=== PATIENT | female | born 1985 | race Caucasian/White ===

== ENCOUNTER 2020-02-24 00:46 | Inpatient (IN) | payer OTHER, SELFPAY ==
[2020-02-24] VITALS (79 sets, daily range): BP systolic 95–143; BP diastolic 48–84; PULSE 80–116; RESP 16; TEMP 36.7–36.9; O2SAT 96–100; BMI 46.8
--- NOTE | 2020-02-24 00:46 | LDADM ---
This patient, Monica Laureano, was admitted to Labor/Delivery/Recovery 106 on 02/24/20 at 00:46. Plans for labor, pain management and were discussed with patient. Patient/family oriented to hospital policies and general routines including ID bracelet, bed and alarms, visiting hours, pain management, procedures, bathroom and other care routines, personal items, smoking policy, room service/diet and guest tray routines, security routines, and visiting hours. Patient/Family are encouraged to report perceived risks to care and to ask questions if they do not understand what they are told or what they should do. See OBIX for further documentation.
[2020-02-24] MEDS: LACTATED RINGERS 1,000 ML 125 ML IV CONT ×2 (01:12→01:34)
[2020-02-24 01:24] LABS: Basophils Percent Auto 0.2 % (0.2-1.2); Eosinophils Absolute Auto 0.1 K/mm3 (0-0.3); Eosinophils Percent Auto 0.6 % (0-4.4); Hematocrit 35.7 % (37.0-47.0); Hemoglobin 11.9 g/dL (12.0-15.0); Immature Granulocyte Absolute 0.02 K/mm3 (0.00-0.031); Immature Granulocyte Percent A 0.2 % (0-0.5); Lymphocytes Absolute Auto 1.77 K/mm3 (0.9-3.2); Mean Corpuscular HGB Conc 33.3 g/dl (32-36); Mean Corpuscular Volume 86.9 fl (80-100); Monocytes Absolute Auto 0.9 K/mm3 (0.1-0.6); Monocytes Percent Auto 10.8 % (2.6-8.5); Neutrophils Absolute Auto 5.7 K/mm3 (1.3-6.7); Neutrophils Percent Auto 67.2 % (45.5-73.1); Platelet Count Result 177 k/mm3 (150-375); Red Blood Count 4.11 M/mm3 (4.2-5.4); Red Cell Distribution Width 12.6 % (11.5-14.5); White Blood Count 8.4 K/mm3 (4.5-10.0)
[2020-02-24 01:58] LABS: Glucose Point of Care 82 (65-105)
[2020-02-24 03:33] LABS: Glucose Point of Care 84 (65-105)
[2020-02-24] MEDS: OXYTOCIN 30 UNITS/NS 500 ML 30 UNITS/500 ML BAG 999 UNITS IV CONT (05:05)
--- NOTE | 2020-02-24 05:20 | P.PCNOB_ITS ---
OB - Delivery Note Procedure Delivery date: 02/24/20 Procedure: events: Gestational Diabetes Induction method: none Delivery monitor: external FHT and external uterine Route of delivery: Laceration description: Perineal - 1st Degree Delivery repair: vicryl (3-0 ) Specimen: Yes (placenta) Estimated blood loss (mL): 150 Anesthesia type: Epidural Disposition: floor [place] Baby Weeks of gestation at delivery: 38 Infant gender: Male presentation: vertex Placenta delivery description: Spontaneous cord vessel description: 3 Vessels score one minute: 8 score five minutes: 9
--- NOTE | 2020-02-24 05:20 | WPDOBADMIT ---
Obstetrics - Admit Note Admission Note: record reviewed. No pertinent additions to the history and/or any subsequent changes in the physical findings that are not consistent with the expected course of the were found. Additions to the history and/or subsequent changes in the physical findings follow. None.Here in labor. Cervix was 7/70/-2 AROM with clear fluid. FHTs reactive
--- NOTE | 2020-02-24 05:22 | PM.OBDSVD ---
DS: Diagnosis Discharge Diagnosis (1) (normal spontaneous vaginal delivery): Code(s): O80 - Encounter for full-term uncomplicated delivery Status: Acute (2) GDM, class A2: Code(s): O24.419 - Gestational diabetes mellitus in , unspecified control Status: Acute (3) 38 weeks gestation of : Code(s): Z3A.38 - 38 weeks gestation of Status: Acute OB - DS: Summary OB Procedures : NST and Ultrasound OB Procedures Intrapartum: Spontaneous Vag Delivery OB Procedures: : None Peripartum Data Delivery Method: Natural Vaginal Laceration description: Perineal - 1st Degree complications: none Status at Discharge Functional status at discharge: independent ambulation Overall status at discharge: patient is progressing back to baseline Time Spent with Patient Time attestation: Total time spent providing and/or coordinating discharge services: DS: Data Data Completed and Pending Labs on day of discharge: Labs from last 24 hours 02/24/20 02/24/20 02/24/20 03:30 01:11 01:08 WBC RBC Hgb Hct MCV MCH MCHC RDW Plt Count MPV Immature Gran % (Auto) Neut % (Auto) Lymph % (Auto) [place] % (Auto) Eos % (Auto) Baso % (Auto) Lymph # (Auto) [place] # (Auto) Eos # (Auto) Baso # (Auto) Abs Immat Gran (auto) Absolute Neuts (auto) Absolute Nucleated RBC Nucleated RBC % POC Capillary Glucose 84 82 RPR Blood Type O Positive Antibody Screen Negative 02/24/20 02/24/20 01:08 01:08 WBC 8.4 RBC 4.11 L Hgb 11.9 L Hct 35.7 L MCV 86.9 MCH 29.0 MCHC 33.3 RDW 12.6 Plt Count 177 MPV 11.0 H Immature Gran % (Auto) 0.2 Neut % (Auto) 67.2 Lymph % (Auto) 21.0 [place] % (Auto) 10.8 H Eos % (Auto) 0.6 Baso % (Auto) 0.2 Lymph # (Auto) 1.77 [place] # (Auto) 0.9 H Eos # (Auto) 0.1 Baso # (Auto) 0.0 Abs Immat Gran (auto) 0.02 Absolute Neuts (auto) 5.7 Absolute Nucleated RBC 0.0 Nucleated RBC % 0.0 POC Capillary Glucose RPR Pending Blood Type Antibody Screen Discharge Plan Discharge Attending physician on discharge: Leidy Henriquez Discharging Clinician: Leidy Henriquez Anticipated Discharge Date/Time: 02/26/20 05:23 Patient Disposition: Home, Self-Care Activity: may drive after 2 weeks and pelvic rest Diet: regular Discharge Instructions: Education: Mom and Baby Guide Given to: Mother Follow-Up: Call your delivering provider's office for an appointment to be seen in: 6 Weeks Mom and baby should come to the [facility] for the follow-up appointment. Appointment Date/Time: February 27, 2020 at 10:00 am What to expect at your follow-up visit: Blood Pressure Check Physical Assessment Call [phone] if you are unable to keep your appointment time. BREAST CARE: 1. Wear a snug supportive bra. 2. For engorgement discomfort: Breast Feeding: A. Apply warm moist washcloths B. Express milk as needed to relieve engorgement C. Wear loose clothing 3. For sore nipples: A. Identify correct latch-on B. Apply warm moist washcloths before and after nursing C. Air dry nipples after nursing D. May apply Lansinoh cream to nipples PERINEAL CARE: 1. Until bleeding stops, use your farrah bottle after urinating 2. Change your pad frequently throughout the day 3. You may take sitz baths several times a day (fill your bathtub with warm water and soak for 20 minutes.) Do NOT bathe in the water 4. No tub baths until seen by your physician - You may shower ACTIVITY: 1. Rest as much as possible. 2. Do not exercise or lift anything heavier than your baby (such as laundry or other children.) 3. Avoid stairs or driving as much as possible. 4. Do not put anything into the vagina. N
[2020-02-24] MEDS: OXYTOCIN 30 UNITS/NS 500 ML 30 UNITS/500 ML BAG 125 UNITS (05:40)
[2020-02-24 07:47] LABS: Rapid Plasma Reagin Non-Reactive (NonReactive)
[2020-02-24] MEDS: WITCH HAZEL 40 PADS 1 PAD TOPICAL (08:38)
[2020-02-24] MEDS: BENZOCAINE 20% AER SPR (*SP) 56 GM CAN 1 SPRAY TOPICAL (08:38)
--- NOTE | 2020-02-24 08:55 | PC.NURSE ---
Patient transferred to post room #288 per wheelchair from labor and delivery. Support person present. Oriented to unit, room, information board, rooming in, admission packet and security measures. Patient verbalizes understanding.
--- NOTE | 2020-02-24 13:45 | PC.NURSE ---
Consult with pt., mother is able to independently latch infant with appropriate positioning/alignment. She denies nipple discomfort, is feeding as required and waking to feed if needed. Reviewed infant feeding cues, frequencies, duration of feedings, feeding elimination flow sheet, and signs of adequate intake. Mother is feeding as required and waking to feed if needed. Infant is currently meeting outcomes for weight, output, jaundice and feeding frequencies. Mother states she feels confident to continue effective at home. Reviewed transition to breast milk, signs of adequate intake, and engorgement/relief. Instructed to call ICP if intake/output less than required. Reviewed regular medications mother is taking. Information provided per Shy. Reviewed community resources on the [facility] website and in the Mom/Baby guide. Information on outpatient services provided. Mother has no further questions at this time.
--- NOTE | 2020-02-24 19:00 | PC.NURSE ---
Patient viewed the discharge video Mother & Baby Care, The First Two Weeks . Patient was given the opportunity and encouraged to ask questions. Patient verbalized understanding of information shared and has been given the mother/baby guide for home reference.
[2020-02-25 05:52] LABS: Hematocrit 34.2 % (37.0-47.0); Hemoglobin 11.3 g/dL (12.0-15.0)
[2020-02-25 08:00] VITALS: BP 119/69; PULSE 98; RESP 14; TEMP 36.6; O2SAT 97
[2020-02-25] MEDS: DOCUSATE SODIUM 100 MG CAPSULE PO (08:43)
[2020-02-25] MEDS: MULTIVIT/MIN/PREN/FOL AC/IRON TABLET 1 TAB PO (08:43)
--- NOTE | 2020-02-25 10:01 | WPDANLDPN2 ---
Anes-Prog Note L&D Date/Time: 02/25/20 10:01 Comfortable throughout: labor and delivery Neuraxial method: epidural Epidural/Spinal procedure site: clean & non-tender Neuro status: Neuro function grossly intact. Cardiovascular status: normal Respiratory status: normal Airway patency: baseline Mental status: baseline Post-Op hydration status: normal Vital Signs: Last Vital Signs Temp 36.8 C 02/24/20 19:00 Pulse 86 02/24/20 19:00 Resp 16 02/24/20 19:00 BP 121/69 02/24/20 19:00 Pulse Ox 100 02/24/20 19:00 Post-procedural complaints: none Patient feedback: Patient satisfied with anesthetic care.
--- NOTE | 2020-02-25 12:01 | PM.OBPNVD ---
OB - PN: Subj Subjective Date/time seen: 02/25/20 12:01 Patient comments: no complaints, tolerating diet and flatus present baby status: doing well and nursing well feeding status: exclusively breast feeding OB - PN: Obj Data Labs CBC & Chem 7: 02/25/20 05:03 Labs: Laboratory Results - last 24 hr 02/25/20 05:03 Hgb 11.3 L Hct 34.2 L OB - PN A/P Plan day: 1 Plan: routine care, discharge home and follow up 6 weeks Comments: Desires to be circumcised. Procedure discussed in detail as well as risk of procedure i.e infection, bleeding, injury to penis. pt voiced verbalized. Informed consent obtained. Time Spent With Patient Time: Total time spent is greater than 50% in coordination of care (as documented) at patient's floor/unit and/or counseling patient: Time with patient: 15 - 25 minutes Review of Systems Constitutional: Constitutional: Reports no additional constitutional complaints Cardiovascular: Cardiovascular: Reports no additional cardiovascular complaints Respiratory: Respiratory: Reports no additional respiratory complaints Gastrointestinal: Gastrointestinal: Reports no additional gastrointestinal complaints Genitourinary: Genitourinary: Reports no additional female genitourinary complaints Exam Const: General: comfortable, no acute distress, alert and awake Resp: Effort & Inspection: normal respiratory effort Auscultation: clear to auscultation bilaterally Cardio: Rate: regular rate GI: Auscultation: normal bowel sounds Other: Fundus firm below umbilicus
--- NOTE | 2020-02-25 12:03 | PM.OBDSVD ---
OB - DS: Summary OB Procedures : None OB Procedures Intrapartum: Spontaneous Vag Delivery OB Procedures: : None Peripartum Data Delivery Method: Natural Vaginal Time Spent with Patient Time attestation: Total time spent providing and/or coordinating discharge services: DS: Data Data Completed and Pending Pending studies at discharge: Pending at discharge 02/24/20 05:05 Surgical [PTH] Routine Labs on day of discharge: Labs from last 24 hours 02/25/20 05:03 Hgb 11.3 L Hct 34.2 L Discharge Plan Discharge Attending physician on discharge: Leidy Henriquez Discharging Clinician: Leidy Henriquez Anticipated Discharge Date/Time: 02/26/20 05:23 Patient Disposition: Home, Self-Care Activity: may drive after 2 weeks and pelvic rest Diet: regular Patient Instructions: Antibiotic Form Stand Alone Forms: General Discharge Information Follow-up/Referrals: Leidy Henriquez MD [Physician] - 6 Weeks Discharge Medications: New polysaccharide iron complex 150 mg iron Capsule 150 mg PO BIDWM Qty: 60 RF: 0 docusate sodium 100 mg Capsule 100 mg PO BID PRN (Reason: Constipation) Qty: 60 RF: 0 ibuprofen 600 mg Tablet 600 mg PO Q6H PRN (Reason: Cramping) Qty: 60 RF: 0 Continued PNV cmb#95-ferrous fumarate-FA [] 28 mg iron- 800 mcg Tablet 1 tablet PO DAILY RF: 0 Discontinued Humulin N NPH U-100 Insulin 100 unit/mL Suspension 8 unit SUBCUT HS RF: 0 aspirin 81 mg Tablet,Chewable 81 mg PO DAILY RF: 0 Date of admission: 02/24/20 00:46 Primary Care Provider: PrestonNayan Admitting Provider: Leidy Henriquez Attending physician on admission: Leidy Henriquez Condition: Stable
[2020-02-27 10:01] VITALS: BP 122/80; PULSE 102; RESP 20; TEMP 36.6; O2SAT 97
== END 2020-02-25 13:24 | disposition home or self-care (01) | DRG 807 ==
LOC: ANHLDR 05:24 → ANHOB2 02-25 12:53 → ANHLDR 02-28 10:35 → ANHOB2 02-28 10:35
PROVIDERS: Admitting Provider Obstetrics & Gynecology Gynecology; PCP Family Medicine; Visit Provider Obstetrics & Gynecology Gynecology
DX: O24.429 Gestational diabetes mellitus in childbirth, unspecified control (principal); Z37.0 Single live birth; Z3A.38 38 weeks gestation of pregnancy; Z23 Encounter for immunization; O70.0 First degree perineal laceration during delivery; O77.0 Labor and delivery complicated by meconium in amniotic fluid
CPT/HCPCS: 36415; 84112; 85014; 85018; 85025; 86592; 86850; 86900; 86901; 88307; A9270; J2590; J2795; J7120

== ENCOUNTER 2024-03-18 12:51 | Outpatient (CLI) | payer OTHER, SELFPAY ==
--- NOTE | ~2024-03-18 | MM_ITS ---
EXAMINATION: MM diagnostic blair BI w sarina HISTORY: Palpable right breast abnormality. TECHNIQUE: Additional 3-D tomosynthesis images of the breasts were performed and synthetic 2-D images were generated. CAD analysis was submitted and interpreted. COMPARISON: None BREAST PARENCHYMAL COMPOSITION: Not dense: There are scattered areas of fibroglandular density. FINDINGS: There are no suspicious masses, calcifications or architectural distortion in either breast to suggest malignancy. There is focal asymmetry in the upper outer quadrant of the left breast which compresses with spot views. IMPRESSION: 1. No evidence for malignancy in either breast. 2. Correlation with limited bilateral breast ultrasound recommended for evaluation of palpable right breast abnormality and focal asymmetry in the upper outer quadrant of the left breast. BI-RADS Category 0: Incomplete: Needs additional imaging evaluation. Reviewed, dictated and finalized at location B. IMPRESSION: 1. No evidence for malignancy in either breast. 2. Correlation with limited bilateral breast ultrasound recommended for evaluat ion of palpable right breast abnormality and focal asymmetry in the upper outer quadrant of the left breast. BI-RADS Category 0: Incomplete: Needs additional imaging evaluation.
== END 2024-03-18 12:52 | disposition home or self-care (01) ==
LOC: ANHIMG 12:54
PROVIDERS: PCP Family Medicine; Visit Provider Advanced Practice Midwife
DX: N64.4 Mastodynia (principal); N63.10 Unspecified lump in the right breast, unspecified quadrant; R92.8 Other abnormal and inconclusive findings on diagnostic imaging of breast
CPT/HCPCS: 77062; 77066; G0279

== ENCOUNTER 2024-03-25 08:20 | Outpatient (CLI) | payer OTHER, SELFPAY ==
--- NOTE | ~2024-03-25 | US_ITS ---
US breast BI limited DATE: 03/25/2024 08:50 INDICATION: Referring physician reportedly palpated lumpy area in the upper outer right breast. Focal mammographic asymmetry reported in the upper outer quadrant of left breast on March 18, 2024 diagnos tic mammogram. TECHNIQUE: Real-time imaging of the upper outer quadrant of each breast COMPARISON: March 18, 2024 bilateral diagnostic mammogram FINDINGS: No suspicious mass or shadowing, cyst or other significant sonographic abnormalities detect ed in the upper outer quadrant in either breast. IMPRESSION: BI-RADS Category 1: Negative Recommendation routine mammographic screening Reviewed, dictated and finalized at Location [facility]. Reviewed, dictated and finalized at location A.
== END 2024-03-25 08:21 | disposition home or self-care (01) ==
LOC: ANHIMG 08:22
PROVIDERS: PCP Family Medicine; Visit Provider Obstetrics & Gynecology Gynecology
DX: N64.4 Mastodynia (principal)
CPT/HCPCS: 76642

== ENCOUNTER 2025-06-22 08:57 | Outpatient (RCR) | payer OTHER, SELFPAY ==
[2025-06-20 10:15] LABS: Beta HCG Quantitative 7186.10 mIU/ML
[2025-06-22 09:56] LABS: Beta HCG Quantitative 12667.00 mIU/ML
== END 2025-09-18 23:59 | disposition home or self-care (01) ==
LOC: ANHLAB 08:57
PROVIDERS: PCP Family Medicine; Visit Provider Obstetrics & Gynecology Gynecology
DX: O26.21 Pregnancy care for patient with recurrent pregnancy loss, first trimester (principal); Z3A.00 Weeks of gestation of pregnancy not specified
CPT/HCPCS: 36415; 84702

== ENCOUNTER 2025-07-03 12:36 | Outpatient (CLI) | payer OTHER, SELFPAY ==
--- NOTE | ~2025-07-03 | US_ITS ---
Pelvic ultrasound. Clinical History: First trimester , establish dates and viability Technique: Realtime transvaginal scanning of the pelvis was performed. Color flow Doppler and Doppler spectral analysis were performed. Findings: The uterus is anteverted, and contains an intrauterine gestation. With crown-rump length of 9 mm corresponds to an estimated gestational age of 7 weeks 0 days. heart rate is 145 bpm. Neither ovary seen. No adnexal mass seen. There is no evidence of free fluid in the cul de sac. Impression: Live intrauterine gestation, with estimated gestational age of 7 weeks 0 days. heart rate is 14 5 bpm. Sonographic LYLY is 02/19/2026. Reviewed, dictated and finalized at location . Impression: Live intrauterine gestation, with estimated gestational age of 7 weeks 0 days. heart rate is 145 bpm. Sonographic LYLY is 02/19/2026.
== END 2025-07-03 12:37 | disposition home or self-care (01) ==
LOC: MICIMG 12:37
PROVIDERS: PCP Obstetrics & Gynecology Gynecology; Visit Provider Obstetrics & Gynecology Gynecology
DX: O26.21 Pregnancy care for patient with recurrent pregnancy loss, first trimester (principal); Z3A.00 Weeks of gestation of pregnancy not specified
CPT/HCPCS: 76817

== ENCOUNTER 2025-08-28 11:36 | Outpatient (CLI) | payer OTHER, SELFPAY ==
--- OUTSIDE RECORDS SUMMARY | 2025-08-28 12:05 | XMS_ITS | Clinical Summary ---
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 Gender Identity Not on file Sexual Orientation Not on file Plan of Treatment Health Maintenance Due Date Last Done Comments Cervical Cancer Screening Pa p Smear (Age 30 to 64) Every 3 Years 1986 Annual Physical 1989 Hepatitis C 2004 DTaP, Tdap and Td Vaccines ( 1 - Tdap) 2005 Hepatitis B Vaccines (1 of 3 - 19+ 3-dose series) 2005 HPV Vaccines (1 - 3-dose SCD M series) 2013 Cervical Cancer Screening Pa p with HPV Testing (Age 30 to 64) Every 5 Years 2016 Cervical Cancer Screening with HPV 2016 COVID-19 Vaccine (2023-2 5 season) 2025 Meningococcal B Vaccine Aged Out No l onger eligible based on patient's age to complete this topic Meningococcal Vaccine Aged Out No guerda zhanna eligible based on patient's age to complete this topic Pneumococcal Vaccine: Pediat rics (0 to 5 Years) and At-Risk Patients (6 to 49 Years) Aged Out No longer eligible b ased on patient's age to complete this topic RSV Immunizations Under 20 Months Aged Out No longer eligible based on patient's age to complete this topic Insurance [employer] Care Teams Whitesmith Relationship Specialty Start Date End Date Nayan Cheney MD [address] [place] [phone] PCP - General FAMILY PRACTICE 09/21/19
--- OUTSIDE RECORDS SUMMARY | 2025-08-28 12:05 | XMS_ITS | Clinical Summary ---
Author Organization [employer] [facility] [address] [facility] [address] [place] [address] Phone Care Team Providers Care Safety Sealer Name Role Phone Nayan Cheney MD Primary Care Provider [phone] Social History Tobacco Use Types Packs/Day Years Used Date Smoking Tobacco: Never Assessed Comments Unknown Sex and Gender Information Value Date Recorded Sex Assigned at Not on file Legal Sex Female 7:50 AM CDT Gender Identity Not on file Sexual Orientation Not on file Plan of Treatment Health Maintenance Due Date Last Done Comments DTAP/TDAP/TD VACCINES (1 - Tdap) 2005 HEPATITIS B VACCINES (1 of 3 - 19+ 3-dose series) 12/01 HPV/Cotest (21-29) 2007 HPV VACCINES (1 - 3-dose SCDM series) 2013 CERVICAL CANCER SCREENING 2016 HPV/Cotest (30-65) 2016 PAP SMEAR 2016 INFLUENZA VACCINE (#1) 2025 Insurance [facility] [employer] PPO [id number] Care Teams Safety Sealer Relationship Specialty Start Date End Date Nayan Cheney MD [address] [place] [phone] PCP - General Family Practice 10/10/19
[2025-08-28 12:48] LABS: Hematocrit 37.0 % (37.0-47.0); Hemoglobin 12.4 g/dL (12.0-15.0); Immature Granulocyte Percent A 0.5 % (0-0.5); Lymphocytes Absolute Auto 1.40 K/mm3 (0.9-3.2); Mean Corpuscular HGB Conc 33.5 g/dl (32-36); Mean Corpuscular Hemoglobin 30.2 pg (26-34); Mean Corpuscular Volume 90.2 fl (80-100); Nucleated Red Blood Cells Absolute Auto 0.000 K/mm3 (0.0-0.012); Nucleated Red Blood Cells Perc 0.0 % (0.0-0.2); Platelet Count Result 219 k/mm3 (150-375); Red Blood Count 4.10 M/mm3 (4.2-5.4); White Blood Count 8.4 K/mm3 (4.5-10.0)
[2025-08-28 12:59] LABS: Hemoglobin A1C 5.4 % (<5.7)
[2025-08-28 13:40] LABS: Syphilis IgG/IgM Antibody Non-Reactive (Nonreactive)
[2025-08-28 13:45] LABS: Thyroid Stimulating Hormone Reflex 0.656 uIU/mL (0.465-4.68)
[2025-08-28 13:46] LABS: Hepatitis B Surface Antigen Negative (Negative)
[2025-08-28 13:49] LABS: HIV 1/2 Ab P24 Ag Result Negative (Negative)
[2025-08-28 13:55] LABS: Ferritin 128.00 ng/mL (6.24-137)
== END 2025-08-28 11:37 | disposition home or self-care (01) ==
LOC: ANHLAB 11:39
PROVIDERS: PCP Family Medicine; Visit Provider Obstetrics & Gynecology Gynecology
DX: Z36.9 Encounter for antenatal screening, unspecified (principal); Z3A.00 Weeks of gestation of pregnancy not specified
CPT/HCPCS: 36415; 82306; 82728; 83036; 84443; 85025; 86593; 86703; 86762; 86803; 86850; 86900; 86901; 87340; G0432

== ENCOUNTER 2025-11-06 08:49 | Outpatient (CLI) | payer OTHER, SELFPAY ==
[2025-11-06 09:09] LABS: Hematocrit 37.5 % (37.0-47.0); Hemoglobin 12.6 g/dL (12.0-15.0)
[2025-11-06 09:34] LABS: Hemoglobin A1C 5.2 % (<5.7)
[2025-11-06 10:14] LABS: Syphilis IgG/IgM Antibody Non-Reactive (Nonreactive)
[2025-11-06 10:19] LABS: HIV 1/2 Ab P24 Ag Result Negative (Negative)
== END 2025-11-06 08:50 | disposition home or self-care (01) ==
LOC: ANHLAB 08:51
PROVIDERS: PCP Family Medicine; Visit Provider Obstetrics & Gynecology Gynecology
DX: Z34.93 Encounter for supervision of normal pregnancy, unspecified, third trimester (principal)
CPT/HCPCS: 36415; 82306; 83036; 85014; 85018; 86593; 86703; G0432